=== PATIENT | female | born 1960 | race Caucasian/White ===

== ENCOUNTER → 2016-03-01 | Outpatient (CLI) | payer OTHER ==
[~2016-03-01] MED LIST: ACETAMINOPHEN-1 EAC1 PO; ADVIL PM CAPLE1 EACH PO; ALLEGRA180 MG; FLEXERIL PO; IBUPROFEN 200200 M1 PO; PERCOCET 5-3251 EACH PO; PHENTERMINE H37.5 MG PO
== END ==
LOC: RAD 10:13
DX: Z12.31 Encounter for screening mammogram for malignant neoplasm of breast (principal)